=== PATIENT | female | born 1995 | race American Indian/Alaskan Native ===

== ENCOUNTER 2017-10-02 01:37 | Inpatient (IN) | payer OTHER ==
[~2017-10-02] VITALS: Ht 157.5 cm; Wt 77.0 kg
[~2017-10-02 01:37] MED LIST: PROVENTIL HFA6.7 GM INH
[2017-10-02] MEDS ORDERED: PRENATABS FA T1 EACH PO (04:51)
--- NOTE | 2017-10-02 08:26 | PR ---
[facility] [address] [facility] [place] [address] Signed Progress Notes IP Datetime Report Generated by CPN: 10/02/2017 08:26 PROGRESS NOTES: [id number] Impression: Normal progression of labor Plan: Continue present management; Anticipate Vaginal Delivery VITAL SIGNS: [id number] Vital Signs: Reviewed EXAM: [id number] Dilatation: 8.0 Effacement: 90 Station: 0 Uterine Contractions: every 2-3 minutes MEMBRANES: [id number] Membrane Status: Ruptured Comments: Comfortable with Epidural Fetus A: [id number] FHR Baseline: 130 Variability: Moderate 6-25bpm Accelerations: 15X15 Decelerations: None Presentation: Vertex Fetus B: [id number] Signing Physician: Ana Laura Patel MD Copies: ~ *Electronically Signed* 10/02/17 0826 ANA LAURA PATEL MD PATIENT NAME: WINDY PONCE PROGRESS NOTE DATE OF : 97 PHYSICIAN: ANA LAURA PATEL MD RPT #: [id number] REPORT IS CONFIDENTIAL AND NOT TO BE RELEASED WITHOUT AUTHORIZATION
--- NOTE | 2017-10-02 10:58 | PR ---
[facility] [address] [facility] [place], [place] [address] Signed Progress Notes IP Datetime Report Generated by CPN: 10/02/2017 10:58 PROGRESS NOTES: [id number] Impression: Normal progression of labor Other Procedures: Attempted IUPC Plan: Continue present management VITAL SIGNS: [id number] Vital Signs: Reviewed; Within Normal Limits EXAM: [id number] Dilatation: 10.0 Effacement: 100 Station: 0 Uterine Contractions: every 2-3 minutes MEMBRANES: [id number] Membrane Status: Ruptured Amniotic Fluid Color: Clear Comments: Pushing well, but already some caput on head. Will continue pushing. Fetus A: [id number] FHR Baseline: 130 Variability: Moderate 6-25bpm Accelerations: 15X15 Decelerations: None Presentation: Vertex Fetus B: [id number] Signing Physician: Ana Laura Patel MD Copies: ~ *Electronically Signed* 10/02/17 1058 ANA LAURA PATEL MD PATIENT NAME: WINDY PONCE PROGRESS NOTE DATE OF : 97 PHYSICIAN: ANA LAURA PATEL MD RPT #: [id number] REPORT IS CONFIDENTIAL AND NOT TO BE RELEASED WITHOUT AUTHORIZATION
--- NOTE | 2017-10-02 13:33 | NUR ---
10/02/17 1333 Patti Parrish 1312 ARRIVED IN PACU AWAKE WITH NO C/O'S. FAMILY IN ROOM WITH BABY. 1325 PT RESTING. DAD HOLDING BABY.
--- NOTE | 2017-10-04 11:17 | OR ---
[facility] [address] [place], [place] [address] Signed DATE OF OPERATION: 10/02/2017 SURGEON: Carlos Alberto Cage MD PREOPERATIVE DIAGNOSES: Term labor, failure to descend cephalopelvic disproportion. POSTOPERATIVE DIAGNOSES: Term labor, failure to descend cephalopelvic disproportion. PROCEDURE: Primary low-transverse segment section, delivery of live male . CAMPUS REP: Dr. Mosley. ANESTHESIA: Epidural. ESTIMATED BLOOD LOSS: 600 mL. COMPLICATIONS: None. DRAINS: Cantu to bladder. FINDINGS: Live male , Apgars 8 and 9. Weight 8 pounds 4 ounces. Normal uterus, normal tubes, and ovaries bilateral. DESCRIPTION OF PROCEDURE: The patient was brought to the operating room, placed supine position. After adequate epidural anesthesia was obtained, the patient was prepped and draped in usual sterile fashion. A Pfannenstiel skin incision was made with a scalpel. Subcutaneous tissue was dissected with a Bovie. The fascia was nicked with scalpel and extended in transverse fashion using curved scissors. The underlying abdominal musculature was bluntly and sharply from the fascia above and below the incision. The abdominal musculature was bluntly and sharply along the midline. The peritoneum was Electronically Signed By: CARLOS ALBERTO CAGE MD 10/04/17 1117 PATIENT NAME: WINDY PONCE OPERATIVE REPORT DATE OF : 97 REPORT #: [id number] PHYSICIAN: CARLOS ALBERTO CAGE MD PCP: JOAQUIN HELMS MD REPORT IS CONFIDENTIAL AND NOT TO BE RELEASED WITHOUT AUTHORIZATION [facility] [address] [place], [place] [address] Signed then grasped with hemostats, elevated, and nicked with Metzenbaum scissors and extended in a vertical fashion using Metzenbaum scissors. The Rj self-retaining retractor was inserted into the incision and tightened in place. The lower uterine segment was carefully identified, the bladder flap noted to be well below the area, and so a small incision was made in the lower uterine segment using the scalpel. The incision was extended in transverse fashion using finger dissection. The infant was noted to be in a vertex straight OP presentation. Infant head was wedged tightly in the pelvis and the head was then lifted up out of the pelvis and delivered from the incision. The rest of the was then delivered from the incision. The mouth and nose were suctioned with bulb syringe while the cord was doubly clamped and cut. The was passed off table in good condition to the awaiting nurse. The placenta was manually removed and uterine cavity explored with a lap pad to remove any retained membranes. Angle stitch of 0 Monocryl was placed at one end of incision and a running locking stitch of 0 Monocryl starting at the other end was used to close the incision. A 2nd running stitch of 0 Monocryl was used to imbricate the 1st layer. The entire pelvis was irrigated, suctioned, and examined. Any superficial bleeding spots were cauterized with the Bovie. When good hemostasis was obtained, the Rj retractor was removed and the incision again examined, and noted to have good hemostasis. Sheet of ACell was placed over the lower uterine segment to help with healing and then the peritoneum was closed using running stitch of 2-0 Vicryl suture. The fascia was reapproximated using interrupted stitches of 0 Vicryl suture. The abdominal wall incision was irrigated, suctioned, and examined. Any bleeding spots were cauterized with the Bovie. Powdered ACell sprinkled on the abdominal musculature and then the fascia closed using two running stitches of 0 Vicryl suture meeting in the midline. Subcutaneous tissue was irrigated, suctioned, and examined. Any bleeding spots cauterized with the Bovie. The remaining powdered ACell sprinkled on subcutaneous tissue, which was then closed using interrupted stitches of #3-0 Vicryl suture. The skin was reapproximated using skin clips. The patient tolerated the procedure well and went to recovery room in good condition. Sponge, needle, and instrument count was correct at the end of procedure. Carlos Alberto Cage MD MJB/MODL /[id number] Electronically Signed By: CARLOS ALBERTO CAGE MD 10/04/17 1117 PATIENT NAME: WINDY PONCE OPERATIVE REPORT DATE OF : [birth year] REPORT #: [id number] PHYSICIAN: CARLOS ALBERTO CAGE MD PCP: JOAQUIN HELMS MD REPORT IS CONFIDENTIAL AND NOT TO BE RELEASED WITHOUT AUTHORIZATION [address] [address] Signed Copies: ~ Electronically Signed By: CARLOS ALBERTO CAGE MD 10/04/17 1117 PATIENT NAME: WINDY PONCE OPERATIVE REPORT DATE OF : [birth year] REPORT #: [id number] PHYSICIAN: CARLOS ALBERTO CAGE MD PCP: JOAQUIN HELMS MD REPORT IS CONFIDENTIAL AND NOT TO BE RELEASED WITHOUT AUTHORIZATION
--- NOTE | 2017-10-04 11:30 | PR ---
[facility] [facility] [address] [facility] [place] [address] Signed PP Progress Notes Datetime Report Generated by CPN: 10/04/2017 11:30 SUBJECTIVE: [id number] Pain: Within normal limits Nausea/Vomiting: Denies Vital Signs: [id number] Vital Signs: Reviewed; Within Normal Limits Notable Details: PP HGb/Hct = 9.9/29.2 EXAM: [id number] Abdomen/Uterus: Normal Lochia: Normal Extremities: Normal Incision: Normal IMPRESSION/PLAN/PROCEDURES: [id number] Impression: Normal progression Plan: Discharge Procedures: None Progress Notes: Doing well, ready to go home. Signing Physician: Ana Laura Patel MD Copies: ~ *Electronically Signed* 10/04/17 1130 ANA LAURA PATEL MD PATIENT NAME: WINDY PONCE PROGRESS NOTE DATE OF : 97 PHYSICIAN: ANA LAURA PATEL MD RPT #: [id number] REPORT IS CONFIDENTIAL AND NOT TO BE RELEASED WITHOUT AUTHORIZATION
== END 2017-10-04 19:26 | disposition home or self-care (01) | DRG 766 ==
LOC: FBCO 01:37 → FBC 01:44
PROVIDERS: ADMIT General Practice
PROC: 10D00Z1 Extraction of Products of Conception, Low, Open Approach (ICD-10-PCS; principal; 2017-10-03)
DX: O42.02 Full-term premature rupture of membranes, onset of labor within 24 hours of rupture (principal); O64.8XX0 Obstructed labor due to other malposition and malpresentation, not applicable or unspecified; Z3A.38 38 weeks gestation of pregnancy; Z37.0 Single live birth
CPT/HCPCS: 01960; 01961; 85027; C1763; J0690; J2274; J2370; J2405; J2550; J2590; J3010; J7120

== ENCOUNTER 2020-02-17 13:34 | Inpatient (IN) | payer OTHER ==
[~2020-02-17 13:34] MED LIST changes: +PRENATABS FA T1 EACH PO
--- NOTE | 2020-02-21 09:25 | NUR ---
02/21/20 0925 [place] Bauer 0914- PT ARRIVES TO [facility] ROOM #104. PT REPORTS NO PAIN OR NAUSEA. RESP EVEN AND UNLABORED. PT HAS AN 18G IV TO HER RIGHT HAND INFUSING LR WITH 20 UNITS OF PITOCIN. PT'S MOTHER AT THE BEDSIDE. 915- FIRST FUNDAL CHECK COMPLETED WITH MARGARITA SABA. 924- BABY TO RIGHT BREAST WITH ASSISTANCE FROM MARGARITA SABA.
--- NOTE | 2020-02-22 12:35 | PR ---
[facility] [address] [facility] [place] [address] Signed PP Progress Notes Datetime Report Generated by CPN: 02/22/2020 12:35 SUBJECTIVE: [id number] Pain: Within Normal Limits Nausea/Vomiting: Denies Vital Signs: [id number] Vital Signs: Reviewed; Within Normal Limits Notable Details: PP Hgb/Hct = 10.2/30.2 EXAM: Ongoing Abdomen/Uterus: Normal Lochia: Normal Extremities: Normal Incision: Normal IMPRESSION/PLAN/PROCEDURES: [id number] Impression: Normal Progression Plan: Continue Present Management Progress Notes: Doing well, without complaint, BP slightly low, but no dizziness or trouble being up walking. WIll follow Signing Physician: Ana Laura Patel MD Copies: ~ *Electronically Signed* 02/22/20 1235 ANA LAURA PATEL MD PATIENT NAME: WINDY WU PROGRESS NOTE DATE OF : [birth year] PHYSICIAN: ANA LAURA PATEL MD RPT #: [id number] REPORT IS CONFIDENTIAL AND NOT TO BE RELEASED WITHOUT AUTHORIZATION
--- NOTE | 2020-02-22 12:37 | OR ---
[facility] [address] [place], [place] [address] Signed DATE OF OPERATION: 02/21/2020 SURGEON: Carlos Alberto Cage MD PREOPERATIVE DIAGNOSIS: Term , previous section. POSTOPERATIVE DIAGNOSIS: Term , previous section. PROCEDURE: Repeat low transverse segment section, delivery live male infant. ANGLE SHEAR OPERATOR: Melisa Stephens DO. ANESTHESIA: Spinal. ESTIMATED BLOOD LOSS: 500 mL. COMPLICATIONS: None. DRAINS: Cantu to bladder. FINDINGS: Live male , Apgars 9 and 9. Weight 7 pounds 9 ounces. The lower uterine segment was fairly thin. There were some filmy omental adhesions to the anterior surface of the uterus and more dense omental adhesion to the anterior abdominal wall in the midline, otherwise normal tubes and ovaries bilateral. DESCRIPTION OF PROCEDURE: The patient was brought to the operating room, placed in supine position. After adequate spinal anesthesia was obtained, she was prepped and draped in usual sterile fashion. Cantu catheter placed in the bladder. A Pfannenstiel skin incision was made with a scalpel and extended through subcutaneous tissue with the Bovie. The fascia was nicked with scalpel and extended in transverse fashion using curved scissors. The Electronically Signed By: CARLOS ALBERTO CAGE MD 02/22/20 1237 PATIENT NAME: WINDY WU OPERATIVE REPORT DATE OF : [birth year] REPORT #: [id number] PHYSICIAN: CARLOS ALBERTO CAGE MD PCP: [facility] REPORT IS CONFIDENTIAL AND NOT TO BE RELEASED WITHOUT AUTHORIZATION [facility] [address] [place], [place] [address] Signed underlying abdominal musculature was bluntly and sharply from the fascia above and below the incision. The abdominal musculature was bluntly and sharply along the midline. The peritoneum was grasped with hemostats, elevated, nicked with curved scissors, extended in vertical fashion using curved scissors and finger dissection. The filmy adhesions were noted and these were taken off with Bovie near the uterine surface serosa. The Rj self-retaining retractor was inserted into the incision and tightened in place. The lower uterine segment was identified and carefully nicked with scalpel. Bulging bag of clear fluid came from the incision. This was carefully nicked and the incision extended in transverse fashion using finger dissection, clear fluid came from the incision. The was noted to be in a vertex SUDHA presentation. 's head easily delivered from the incision. The rest of the infant was easily delivered from the incision. Cord was doubly clamped and cut and the passed off the table in good condition to awaiting nurse. Cord blood was obtained and then, the placenta manually removed. The uterine cavity was explored with a lap pad to remove any retained membranes. An angle stitch of 0 Monocryl was placed at one end in the incision and a running locking stitch of 0 Monocryl starting at the other end used to close the incision. A 2nd running stitch of 0 Monocryl suture was used to imbricate the 1st layer. Good hemostasis was noted. The entire pelvis was irrigated, suctioned, examined noted to have good hemostasis. The Rj self-retaining retractor was removed. The omental adhesion to the anterior abdominal wall was clamped with two Bel clamps, cut with scissors, and the two pedicles were free tied with 2-0 chromic suture. The entire pelvis was irrigated, suctioned and examined and noted to have good hemostasis. The sheet of ACell was placed over lower uterine segment and then, the anterior wall peritoneum was closed using running stitch of 2-0 Vicryl suture. The abdominal musculature was reapproximated using interrupted stitches of 0 Vicryl suture. The abdominal wall incision was irrigated, suctioned and examined, any bleeding spots cauterized with the Bovie. Powdered ACell was sprinkled over the abdominal musculature to help with healing. The fascia was then closed using 2 running stitches of 0 Vicryl suture meeting in the midline. The subcutaneous tissue was irrigated, suctioned and examined, any bleeding spots cauterized with the Bovie. Subcutaneous tissue was closed using interrupted stitches of 3-0 Vicryl suture and the skin was reapproximated using skin clips. The patient tolerated the procedure well and went to the recovery room in good condition. The sponge, needle, instrument count were correct at the end of the procedure. Carlos Alberto Cage MD MJB/LEANNEL Electronically Signed By: CARLOS ALBERTO CAGE MD 02/22/20 1237 PATIENT NAME: WINDY WU OPERATIVE REPORT DATE OF : [birth year] REPORT #: [id number] PHYSICIAN: CARLOS ALBERTO CAGE MD PCP: [facility] REPORT IS CONFIDENTIAL AND NOT TO BE RELEASED WITHOUT AUTHORIZATION [address] [address] Signed /[id number] Copies: ~ Electronically Signed By: CARLOS ALBERTO CAGE MD 02/22/20 1237 PATIENT NAME: KUNALALINEWINDY OPERATIVE REPORT DATE OF : [birth year] REPORT #: [id number] PHYSICIAN: CARLOS ALBERTO CAGE MD PCP: [facility] REPORT IS CONFIDENTIAL AND NOT TO BE RELEASED WITHOUT AUTHORIZATION
--- NOTE | 2020-02-23 09:53 | PR ---
[facility] [address] [facility] [place] [address] Signed PP Progress Notes Datetime Report Generated by CPN: 02/23/2020 09:53 SUBJECTIVE: [id number] Pain: Within Normal Limits Nausea/Vomiting: Denies Vital Signs: [id number] Vital Signs: Reviewed; Within Normal Limits Notable Details: PP Hgb/Hct = 10.2/30.2 EXAM: Met Abdomen/Uterus: Normal Lochia: Normal Extremities: Normal Incision: Normal IMPRESSION/PLAN/PROCEDURES: [id number] Impression: Normal Progression Plan: Discharge Procedures: None Progress Notes: Doing well, without complaint, ready to go home. Signing Physician: Ana Laura Patel MD Copies: ~ *Electronically Signed* 02/23/20 0953 ANA LAURA PATEL MD PATIENT NAME: WINDY WU PROGRESS NOTE DATE OF : [birth year] PHYSICIAN: ANA LAURA PATEL MD RPT #: [id number] REPORT IS CONFIDENTIAL AND NOT TO BE RELEASED WITHOUT AUTHORIZATION
== END 2020-02-23 12:55 | disposition home or self-care (01) | DRG 788 ==
LOC: FBC 02-21 06:45
PROVIDERS: ADMIT General Practice; ATTEND General Practice
PROC: 10D00Z1 Extraction of Products of Conception, Low, Open Approach (ICD-10-PCS; principal; 2020-02-21 06:45)
DX: O34.211 Maternal care for low transverse scar from previous cesarean delivery (principal); N85.8 Other specified noninflammatory disorders of uterus; Z37.0 Single live birth; Z3A.39 39 weeks gestation of pregnancy
CPT/HCPCS: 01961; 36415; 85027; A9270; J0690; J1100; J2001; J2274; J2370; J2405; J2550; J2590; J2765; J3010; J7121

== ENCOUNTER 2020-08-10 10:47 | Emergency (ER) | payer OTHER ==
[~2020-08-10] VITALS: Ht 152.4 cm; Wt 58.1 kg
[2020-08-10] MEDS ORDERED: IBU600 MG PO (11:52)
== END 2020-08-10 12:02 | disposition home or self-care (01) ==
LOC: ED 10:47
DX: S93.401A Sprain of unspecified ligament of right ankle, initial encounter (principal); X50.9XXA Other and unspecified overexertion or strenuous movements or postures, initial encounter; Y99.0 Civilian activity done for income or pay; J45.909 Unspecified asthma, uncomplicated
CPT/HCPCS: 73610; 99283-25

== ENCOUNTER 2021-02-05 08:14 | Emergency (ER) | payer OTHER ==
[~2021-02-05] VITALS: Ht 157.5 cm; Wt 58.1 kg
[~2021-02-05 08:14] MED LIST changes: +IBU600 MG PO
== END 2021-02-05 09:07 | disposition home or self-care (01) ==
LOC: ED 08:14
DX: H57.89 Other specified disorders of eye and adnexa (principal); Z77.098 Contact with and (suspected) exposure to other hazardous, chiefly nonmedicinal, chemicals; J45.909 Unspecified asthma, uncomplicated
CPT/HCPCS: 99283